=== PATIENT | male | born 1950 | race Caucasian/White ===

== ENCOUNTER → 2016-09-28 | Outpatient (REF) | payer MEDICARE ==
[~2016-09-28] MED LIST: AMLO5TAB2 PO; ASPI1TAB PO; ASPI81TA85 PO; ATOR1TAB19 PO; BACIOI TOP; BACT800T5 PO; BENA20TA2 PO; CIPR500S PO; CYCL5TA PO; DOCU10CA PO; ISOS20TAB PO; MIRA3350 PO; NITR4TASL SL; PERC5TAB6 PO; TYLE650T30 PO; ULTR50TA PO
== END ==
LOC: M SMT 17:14
PROVIDERS: ATTEND Urology
DX: Z85.46 Personal history of malignant neoplasm of prostate (principal)

== ENCOUNTER → 2017-04-12 | Outpatient (CLI) | payer MEDICARE ==
[~2017-04-12] MED LIST changes: -BENA20TA2 PO; +BENA20TA8 PO; +PERC5TAB12 PO; -PERC5TAB6 PO; -ULTR50TA PO; +ULTR50TA8 PO
== END ==
LOC: M SMT 11:08
PROVIDERS: ATTEND Urology
DX: Z85.46 Personal history of malignant neoplasm of prostate (principal)

== ENCOUNTER → 2017-09-09 | Outpatient (CLI) | payer MEDICARE ==
[2017-09-09 14:36] LABS: PROSTATIC SPECIFIC AG MONITOR < 0.01 NG/ML (< 4.0)
== END ==
LOC: M SMT 11:43
DX: Z08 Encounter for follow-up examination after completed treatment for malignant neoplasm (principal); Z85.46 Personal history of malignant neoplasm of prostate
CPT/HCPCS: 84153

== ENCOUNTER → 2018-03-14 | Outpatient (CLI) | payer MEDICARE ==
[2018-03-14 13:48] LABS: PROSTATIC SPECIFIC AG MONITOR < 0.01 NG/ML (< 4.0)
== END ==
LOC: M SMT 09:03
DX: Z85.46 Personal history of malignant neoplasm of prostate (principal)
CPT/HCPCS: 84153

== ENCOUNTER → 2018-08-25 | Outpatient (REF) | payer MEDICARE ==
[~2018-08-25] MED LIST changes: -AMLO5TAB2 PO; +AMLO5TAB6 PO
[2018-08-25 18:55] LABS: APPEARANCE, URINE CLEAR (CLEAR); BACTERIA, URINE AUTO NEGATIVE (NEGATIVE); BILIRUBIN, URINE AUTO NEGATIVE (NEGATIVE); BLOOD, URINE BLOOD NEGATIVE (NEGATIVE); COLOR, URINE COLORLESS (YELLOW); GLUCOSE, URINE (UA) AUTO NEGATIVE (NEGATIVE); KETONE, URINE AUTO NEGATIVE (NEGATIVE); LEUKOCYTE ESTERASE, URINE AUTO NEGATIVE (NEGATIVE); NITRITE, URINE AUTO NEGATIVE (NEGATIVE); PROTEIN, URINE AUTO NEGATIVE (NEGATIVE); RBC, URINE AUTO 0 /HPF (0-3); SPECIFIC GRAVITY URINE AUTO 1.003 (1.002-1.035); SQUAMOUS EPITHELIAL CELL UR AU 0 /HPF (0-6); UROBILINOGEN, URINE AUTO 0.2 mg/dL (0.0-2.0); WBC, URINE AUTO 0 /HPF (0-3)
== END ==
LOC: M LABSMT 15:05
PROVIDERS: ATTEND Urology Pediatric Urology
DX: R30.0 Dysuria (principal)
CPT/HCPCS: 81001; 87086; G0463

== ENCOUNTER → 2018-09-13 | Outpatient (CLI) | payer MEDICARE | LOC: M SMT 10:51 | PROVIDERS: ATTEND Urology | DX: Z85.46 Personal history of malignant neoplasm of prostate (principal) ==

== ENCOUNTER → 2019-03-23 | Outpatient (CLI) | payer MEDICARE ==
[~2019-03-23] MED LIST changes: -ASPI1TAB PO; +ASPI81TA26 PO; -CYCL5TA PO; +CYCL5TAB5 PO; +ISOS1TAB11 PO; -ISOS20TAB PO
== END ==
LOC: M SMT 10:32
PROVIDERS: ATTEND Nurse Practitioner Women's Health
DX: Z85.46 Personal history of malignant neoplasm of prostate (principal)

== ENCOUNTER → 2019-09-26 | Outpatient (CLI) | payer MEDICARE | LOC: M PLALAB 12:01 | PROVIDERS: ATTEND Nurse Practitioner Women's Health | DX: Z85.46 Personal history of malignant neoplasm of prostate (principal) ==

== ENCOUNTER → 2022-03-12 | Outpatient (CLI) | payer MEDICARE, OTHER ==
[~2022-03-12] MED LIST changes: +AMLO1TAB24 PO; -AMLO5TAB6 PO; -ASPI81TA85 PO; +ASPI81TA86 PO; -BACIOI TOP; +BENA-8 PO; -BENA20TA8 PO; +[UNRECOGNIZED DRUG - CODE] TOP
== END ==
LOC: M PLALAB 15:36
PROVIDERS: ATTEND Nurse Practitioner Women's Health
DX: Z85.46 Personal history of malignant neoplasm of prostate (principal)

== ENCOUNTER 2022-04-21 12:56 | Observation (INO) | payer MEDICARE, OTHER ==
[~2022-04-21] VITALS: Ht 170.2 cm; Wt 68.1 kg
[2022-04-21] MEDS ORDERED: GABA-283 PO (13:07)
[2022-04-21] MEDS ORDERED: TIZA10TA PO (13:07)
[2022-04-21] MEDS ORDERED: BUTA-198 PO (13:07)
[2022-04-21] MEDS ORDERED: JANU100T PO (13:07)
[2022-04-21] MEDS ORDERED: PANT40TA29 PO (13:07)
[2022-04-21] MEDS ORDERED: PERCOCET 5MG/325MG TAB PO ONE (17:10)
[2022-04-21 17:19] LABS: BASO % 0.3 % (0.0-1.0); EOS # 0.1 10^3/uL (0.0-0.5); HEMOGLOBIN 15.2 g/dl (13.5-17.5); LYMPH # 2.1 10^3/uL (1.5-5.0); LYMPH % 17.6 % (24.0-44.0); MEAN CORPUSCULAR HEMOGLOBIN 29.9 pg (27.0-33.0); MEAN CORPUSCULAR HGB CONC 33.8 g/dl (32.0-36.5); MEAN CORPUSCULAR VOLUME 88.6 fl (80.0-96.0); MONO # 0.8 10^3/uL (0.0-0.8); MONO % 7.2 % (2.0-8.0); NEUTROPHILS # 8.6 10^3/uL (1.5-8.5); NEUTROPHILS % 73.6 % (36.0-66.0); PLATELET COUNT, AUTOMATED 183 10^3/uL (150-450); RED BLOOD COUNT 5.08 10^6/uL (4.30-6.10); WHITE BLOOD COUNT 11.7 10^3/uL (4.0-10.0)
[2022-04-21 18:01] LABS: ALBUMIN 4.6 GM/DL (3.2-5.2); ALT/SGPT 58 U/L (12-78); BILIRUBIN,TOTAL 0.7 MG/DL (0.2-1.0); BLOOD UREA NITROGEN 18 MG/DL (7-18); CALCIUM LEVEL 9.5 MG/DL (8.8-10.2); CARBON DIOXIDE LEVEL 28 MEQ/L (21-32); CHLORIDE LEVEL 109 MEQ/L (98-107); CREATININE FOR GFR 1.22 MG/DL (0.70-1.30); GLOMERULAR FILTRATION RATE > 60.0 (>42); GLUCOSE, FASTING 132 MG/DL (70-100); SODIUM LEVEL 142 MEQ/L (136-145); TOTAL PROTEIN 8.4 GM/DL (6.4-8.2)
[2022-04-21 18:25] LABS: ERYTHROCYTE SEDIMENTATION RATE 3 mm/hr (0-20)
[2022-04-21] MEDS ORDERED: ASPIRIN 81 MG CHEW TABLET PO ONE (19:40)
[2022-04-21] MEDS ORDERED: INSULIN LISPRO (NovoLOG) PER UNIT SC SCH (21:00)
[2022-04-21] MEDS ORDERED: ATORVASTATIN 10 MG TAB PO SCH (21:00)
[2022-04-21] MEDS ORDERED: ACETAMINOPHEN TAB 650MG DOSE (2X325MG) PO PRN (21:10)
[2022-04-21] MEDS ORDERED: DEXTROSE 50% 50 ML SYRINGE IV PRN (21:20)
[2022-04-21] MEDS ORDERED: AMOX500T2 PO (21:20)
[2022-04-21] MEDS ORDERED: GLUCOSE 4GM CHEW TABLET PO PRN (21:20)
[2022-04-21] MEDS ORDERED: HOME MED LIST COMPLETE! XX SCH (21:20)
[2022-04-21] MEDS ORDERED: ACET650T15 PO (21:20)
[2022-04-21] MEDS ORDERED: ISOS20TA PO (21:20)
[2022-04-21] MEDS ORDERED: GLUCAGON INJ 1MG VIAL SC PRN (21:20)
[2022-04-21] MEDS ORDERED: GABA-1171 PO (21:20)
[2022-04-21] MEDS ORDERED: FIORICET TAB PO PRN (21:35)
[2022-04-21] MEDS ORDERED: NITROGLYCERIN 0.4 MG SUBL TABLET SL PRN (21:35)
[2022-04-21 22:33] LABS: HEMOGLOBIN A1c 6.1 %
[2022-04-21] MEDS: GABAPENTIN 100 MG CAP PO SCH (23:03)
[2022-04-21] MEDS: AUGMENTIN 875 MG TAB PO SCH ×2 (23:05→23:09)
[2022-04-22] MEDS: BENAZEPRIL 20 MG TAB PO SCH ×2 (01:41→09:02)
[2022-04-22] MEDS ORDERED: ISOSORBIDE MONONITRATE 10MG TABLET PO SCH (07:00)
[2022-04-22] MEDS ORDERED: PANTOPRAZOLE 40MG TAB (PROTONIX) PO SCH (09:00)
[2022-04-22] MEDS ORDERED: amLODIPine 5 MG TAB PO SCH (09:00)
[2022-04-22] MEDS ORDERED: ASPIRIN 81MG ENTERIC TABLET PO SCH (09:00)
[2022-04-22] MEDS ORDERED: ENOXAPARIN 40MG/0.4ML SYRINGE (J1650 PER 10MG) SC SCH (09:00)
[2022-04-22] MEDS: AUGMENTIN 875 MG TAB PO SCH (09:01)
[2022-04-22] MEDS: GABAPENTIN 100 MG CAP PO SCH ×2 (09:01→17:19)
[2022-04-22 09:02] VITALS: BP 169/92
[2022-04-22] MEDS: INSULIN LISPRO (NovoLOG) PER UNIT SC SCH ×3 (09:12→17:20)
[2022-04-22 16:00] VITALS: BP 150/74
[2022-04-22] MEDS ORDERED: AMIT10TA7 PO (17:53)
[2022-04-22] MEDS ORDERED: BLOO-76 MC (17:53)
[2022-04-22] MEDS ORDERED: SITagliptin 50 MG TAB (JANUVIA) PO SCH (18:00)
== END 2022-04-22 18:43 | disposition home or self-care (01) ==
LOC: M ED 12:56 → M ED INP 12:57 → ENRESERV 04-22 14:32 → M MSPAV 04-22 16:02
PROVIDERS: ADMIT Internal Medicine; ATTEND Internal Medicine
DX: H49.01 Third [oculomotor] nerve palsy, right eye (principal); R51.9 Headache, unspecified; R20.0 Anesthesia of skin; K04.7 Periapical abscess without sinus; I67.82 Cerebral ischemia; G31.1 Senile degeneration of brain, not elsewhere classified; E11.39 Type 2 diabetes mellitus with other diabetic ophthalmic complication; I10 Essential (primary) hypertension; E78.5 Hyperlipidemia, unspecified; I25.10 Atherosclerotic heart disease of native coronary artery without angina pectoris; K21.9 Gastro-esophageal reflux disease without esophagitis; F41.9 Anxiety disorder, unspecified; G44.209 Tension-type headache, unspecified, not intractable; G62.9 Polyneuropathy, unspecified; Z85.46 Personal history of malignant neoplasm of prostate; Z90.79 Acquired absence of other genital organ(s); I25.2 Old myocardial infarction; Z87.891 Personal history of nicotine dependence; Z79.899 Other long term (current) drug therapy; Z79.2 Long term (current) use of antibiotics; Z79.84 Long term (current) use of oral hypoglycemic drugs; Z88.5 Allergy status to narcotic agent; Z91.041 Radiographic dye allergy status; Z82.3 Family history of stroke
CPT/HCPCS: 36415; 70450; 70544; 70551; 80053; 83036; 85025; 85652; 86140; 86618; 87635; 97112; 97116; 97162; 97165; 99285; G0378; J1815

== ENCOUNTER → 2022-06-24 | Outpatient (CLI) | payer MEDICARE, OTHER ==
[~2022-06-24] MED LIST changes: +ACET650T15 PO; +AMIT10TA7 PO; +AMOX500T2 PO; +BLOO-76 MC; +BUTA-198 PO; +GABA-1171 PO; +GABA-283 PO; +ISOS20TA53 PO; +JANU100T PO; +PANT40TA29 PO; +TIZA10TA PO
== END ==
LOC: M PLAIMG 10:06
PROVIDERS: ATTEND Otolaryngology
DX: R22.1 Localized swelling, mass and lump, neck (principal); M47.812 Spondylosis without myelopathy or radiculopathy, cervical region